=== PATIENT | female | born 1960 | race Caucasian/White ===

== ENCOUNTER 2016-08-09 11:10 | Outpatient (CLI) | payer OTHER | END 2016-08-09 11:11 | disposition home or self-care (01) | DX: Z12.31 Encounter for screening mammogram for malignant neoplasm of breast (principal) ==

== ENCOUNTER 2016-08-09 11:13 | Outpatient (CLI) | payer OTHER | END 2016-08-09 11:14 | disposition home or self-care (01) | DX: Z53.9 Procedure and treatment not carried out, unspecified reason (principal); M89.9 Disorder of bone, unspecified ==

== ENCOUNTER 2016-08-30 14:17 | Outpatient (CLI) | payer OTHER | END 2016-08-30 14:18 | disposition home or self-care (01) | DX: M89.9 Disorder of bone, unspecified (principal); Z78.0 Asymptomatic menopausal state ==

== ENCOUNTER 2016-09-16 14:45 | Outpatient (CLI) | payer OTHER | END 2016-09-16 14:46 | disposition home or self-care (01) | DX: R60.0 Localized edema (principal) ==

== ENCOUNTER 2016-09-16 15:41 | Outpatient (CLI) | payer OTHER | END 2016-09-16 15:42 | disposition home or self-care (01) | DX: R60.0 Localized edema (principal) ==